=== PATIENT | male | born 1985 | race Caucasian/White ===

== ENCOUNTER 2023-08-10 01:09 | Emergency (ER) | payer SELFPAY ==
[~2023-08-10] VITALS: Ht 170.2 cm; Wt 64.0 kg
[2023-08-10 01:14] VITALS: BP 135/92; PULSE 76; RESP 16; TEMP 97.4; O2SAT 97
[2023-08-10] MEDS ORDERED: AMOX1TAB16 MT (01:45)
[2023-08-10] MEDS ORDERED: IBUP-2029 MT (01:45)
[2023-08-10] MEDS: AMOXICILLIN/POTASSIUM CLAVULANATE 875/125MG TAB PO ONE (02:00)
[2023-08-10] MEDS: TETANUS, DIPHTHERIA, PERTUSSIS VAC/PF 0.5ML (>10YR OLD) IM ONE (02:01)
== END 2023-08-10 02:13 | disposition home or self-care (01) ==
LOC: ER 01:09
DX: S81.851A Open bite, right lower leg, initial encounter (principal); W54.0XXA Bitten by dog, initial encounter; Y93.89 Activity, other specified; Y92.89 Other specified places as the place of occurrence of the external cause; Y99.8 Other external cause status
CPT/HCPCS: 90471; 90715; 99283